=== PATIENT | male | born 2000 | race Caucasian/White ===

== ENCOUNTER 2024-11-26 11:36 | Emergency (ER) | payer MEDICAID, SELFPAY ==
[2024-11-26 11:44] VITALS: BP 146/79; PULSE 80; RESP 16; TEMP 36.2; O2SAT 99
--- NOTE | 2024-11-26 12:24 | ED.GENADULT ---
HPI - General Adult General Chief complaint: Skin/Abscess/Foreign Body Stated complaint: skin irritation/sinus congestion Source: patient Mode of arrival: ambulatory Limitations: no limitations History of Present Illness HPI narrative: Patient presents for evaluation of a pruritic rash. Symptom onset 7 days ago. This same day his symptoms started he had been working out in the yard. He has had poison sumac in the past and this is similar. Rash involves his extremities x 4 and torso. He has been applying alcohol to the rash. Related Data Allergies Allergy/AdvReac Type Severity Reaction Status Date / Time No Known Allergies Allergy Verified 11/26/24 11:49 Review of Systems Review of Systems: CONSTITUTIONAL: Denies fever, chills, or sweats. EYES: Denies visual changes, redness, or discharge. ENT: Denies rhinorrhea, congestion, sore throat, or otalgia. CARDIOVASCULAR: Denies chest pain, palpitations, or edema. RESPIRATORY: Denies cough or dyspnea. GASTROINTESTINAL: Denies abdominal pain, nausea, vomiting, or diarrhea. GENITOURINARY: Denies dysuria or hematuria. SKIN: Reports pruritic rash to torso and extremities x 4. MUSCULOSKELETAL: Denies back pain, joint pain, or myalgia. NEUROLOGIC: Denies headache, numbness, dizziness, or weakness. PSYCHIATRIC: Denies anxiety or depression. [facility] Past Medical History Medical History No pertinent past medical history Surgical History Surgical History History of hand surgery Family History Family History Mother Family history non-contributory Social History Social History Substance use: current Substance use type: marijuana Gender identity (if verbalized by the patient): Male Spiritual care concerns: No Exam Narrative: GENERAL: Well-appearing, well-nourished, and in no acute distress. HEAD: Normocephalic, atraumatic. EYES: PERRLA and EOMI. ENT: Nares clear, no rhinorrhea or epistaxis. Mucous membranes moist. Oropharynx without tonsillar hypertrophy exudate or other lesions. Bilateral TMs pearly awan nonbulging NECK: Supple. No adenopathy or masses. No carotid bruits or JVD CHEST: Clear to auscultation. No respiratory distress. No wheezes rales or rhonchi HEART: Regular rate and rhythm. No murmur heard. Normal peripheral pulses. ABDOMEN: Soft, nontender, nondistended, normal active bowel sounds. EXTREMITIES: Normal range of motion. No edema. SKIN: There are erythematous vesicles noted to the entire torso and extremities x4 with some linear streaking and scratch mak present NEURO: No focal deficits. Alert and oriented x3. PSYCH: Normal mood and affect. Course Course Emergency Course: This is a 24-year-old male who presented for evaluation of a pruritic rash to his torso and extremities x 4. Exam consistent with poison sumac dermatitis. Will dc with prednisone. Encouraged calamine lotion. Benadryl and cool compresses should help with itching. Follow up with primary provider. Go to the ER for worsening symptoms. Pt in agreement with plan of care. Level of Care: Express Care Visit Vital Signs Vital signs: Vital Signs Temperature 36.2 C L 11/26/24 11:44 Pulse Rate 80 11/26/24 11:44 Respiratory Rate 16 11/26/24 11:44 Blood Pressure 146/79 H 11/26/24 11:44 Pulse Oximetry 99 11/26/24 11:44 Oxygen Delivery Room Air 11/26/24 11:44 Temperature 36.2 C L 11/26/24 11:44 Pulse Rate 80 11/26/24 11:44 Respiratory Rate 16 11/26/24 11:44 Blood Pressure 146/79 H 11/26/24 11:44 Pulse Oximetry 99 11/26/24 11:44 Oxygen Delivery Room Air 11/26/24 11:44 Medical Decision Making Vital Signs Vital Signs: Vital Signs Temperature 36.2 C L 11/26/24 11:44 Pulse Rate 80 11/26/24 11:44 Respiratory Rate 16 11/26/24 11:44 Blood Pressure 146/79 H 11/26/24 11:44 Pulse Oximetry 99 11/26/24 11:44 Oxygen Delivery Room Air 11/26/24 11:44 Temperature 36.2 C L 11/26/24 11:44 Pulse Rate 80 11/26/24 11:44 Respiratory Rate 16 11/26/24 11:44 Blood Pressure 146/79 H 11/26/24 11:44 Pulse Oximetry 99 11/26/24 11:44 Oxygen Delivery Room Air 11/26/24 11:44 Discharge Plan Discharge Clinical Impression: Poison sumac Patient Disposition: Home Condition: Stable Instructions: Antibiotic Form, Poison Margaret (ED) Additional Instructions: COOL COMPRESSES SHOULD HELP ALLEVIATE YOUR SYMPTOMS YOU CAN APPLY CALAMINE LOTION TO HELP WITH THE RASH DO NOT APPLY OTHER TOPICAL PRODUCTS BENADRYL SHOULD HELP WITH ITCHING Patient Language: Irish Prescriptions: New prednisone 20 mg tablet See Rx Instructions .ROUTE .COMPLEX Qty: 21 0RF Rx Instructions: take 2 tabs po daily x 6 days then 1 tab po daily x 6 days, then 1/2 tab po daily x 6 day Follow-up/Referrals: Elias Magaña MD [Physician] - Time of Disposition: 12:22
== END 2024-11-26 12:27 | disposition home or self-care (01) ==
PROVIDERS: Emergency Provider Nurse Practitioner
DX: L23.7 Allergic contact dermatitis due to plants, except food (principal); F12.90 Cannabis use, unspecified, uncomplicated
CPT/HCPCS: 99213; G0463